=== PATIENT | female | born 1965 | race Caucasian/White ===

== ENCOUNTER → 2021-04-22 | Outpatient (CLI) | payer BC ==
[2021-04-22 11:22] LABS: WBC (AUTOMATED 2 10^3 (0-5)
[2021-04-22 11:25] LABS: WBC (AUTOMATED 1 10^3 (0-5)
[2021-04-22 11:37] LABS: GLUCOSE,CSF 54 mg/dL (50-80); TOTAL PROTEIN,CSF 30 mg/dL (20-45)
[2021-04-23 15:13] LABS: CSF IGG INDEX 0.5 (0.0-0.7); IMMUNOGLOBULIN G, QN, SERUM 1154 mg/dL (586-1602)
[2021-04-24 17:08] LABS: MYELIN BASIC PROTEIN, CSF 4.6 ng/mL (0.0-3.7)
== END ==
LOC: RAD 08:00
PROVIDERS: Psychiatry & Neurology Neurology
DX: G35 Multiple sclerosis (principal)
CPT/HCPCS: 82040; 82784; 82945; 83873; 83916; 84157; 87015; 87070; 87116; 87205; 87210; 87252; 89051

== ENCOUNTER 2021-04-24 15:18 | Emergency (ER) | payer BC ==
[2021-04-24 19:16] LABS: HEMOGLOBIN 14.4 gm/dl (12.3-15.3); RED BLOOD COUNT 5.32 M/UL (4.00-5.10)
[2021-04-24 19:31] LABS: BUN/CREATININE RATIO 22 (0-10)
== END 2021-04-24 20:45 | disposition home or self-care (01) ==
LOC: ER1 15:18
PROVIDERS: Emergency Medicine
DX: R51.9 Headache, unspecified (principal); I10 Essential (primary) hypertension; Z90.49 Acquired absence of other specified parts of digestive tract; Z90.710 Acquired absence of both cervix and uterus
CPT/HCPCS: 70450; 80053; 83735; 85025; 96374; 96375; 99284; J1200; J2765; J7030

== ENCOUNTER → 2021-05-03 | Outpatient (CLI) | payer BC ==
[2021-05-03 14:56] LABS: RED BLOOD COUNT 5.09 M/UL (4.00-5.10); WHITE BLOOD COUNT 6.7 K/UL (4.5-11.0)
[2021-05-03 15:31] LABS: BUN/CREATININE RATIO 18 (0-10)
[2021-05-04 09:13] LABS: RHEUMATOID ARTHRITIS FACTOR <10.0 IU/mL (<14.0)
[2021-05-04 17:08] LABS: TREPONEMA PALLIDUM ANTIBODIES Non Reactive (Non Reactive)
[2021-05-06 18:11] LABS: DRVVT 37.3 sec (0.0-47.0); LUPUS REFLEX INTERPRETATION Comment: (.); PT 10.7 sec (9.1-12.0); PT 1:1NP 10.4 sec (9.1-12.0); PTT-LA 33.8 sec (0.0-51.9); THROMBIN TIME 18.4 sec (0.0-23.0)
== END ==
LOC: LAB 13:39
PROVIDERS: Internal Medicine
DX: I47.1 Supraventricular tachycardia (principal); R00.2 Palpitations; M25.50 Pain in unspecified joint; R76.8 Other specified abnormal immunological findings in serum; R79.89 Other specified abnormal findings of blood chemistry; D89.89 Other specified disorders involving the immune mechanism, not elsewhere classified; R13.10 Dysphagia, unspecified; R76.0 Raised antibody titer; E83.51 Hypocalcemia; R53.83 Other fatigue
CPT/HCPCS: 36415; 80053; 81256; 82728; 83520; 83540; 83550; 83735; 84466; 85025; 85611; 86200; 86431; 86780

== ENCOUNTER → 2021-10-08 | Outpatient (CLI) | payer BC | LOC: LAB 12:51 | DX: R76.0 Raised antibody titer (principal); R13.10 Dysphagia, unspecified; R53.83 Other fatigue; M25.50 Pain in unspecified joint; E83.51 Hypocalcemia; R79.89 Other specified abnormal findings of blood chemistry | CPT/HCPCS: 36415; 81256 ==